=== PATIENT | female | born 1950 | race Two or more races ===

== ENCOUNTER 2023-01-31 23:06 | Emergency (ER) | payer MEDICARE, MEDICAID ==
[~2023-01-31] VITALS: Ht 167.6 cm; Wt 65.9 kg
[2023-01-31 23:12] VITALS: BP 135/76
[2023-01-31] MEDS ORDERED: DEXAMETHASONE SOD PHOS 4 MG/ML 5 ML VIAL IM ONE (23:45)
[2023-01-31] MEDS ORDERED: DiphenhydrAMINE HCL 25 MG CAPSULE PO ONE (23:45)
[2023-01-31] MEDS ORDERED: FAMOTIDINE 20 MG TABLET PO ONE (23:45)
== END 2023-02-01 00:04 | disposition home or self-care (01) ==
LOC: EMS 23:10
DX: T78.40XA Allergy, unspecified, initial encounter (principal); E11.9 Type 2 diabetes mellitus without complications; Z88.0 Allergy status to penicillin; Z88.1 Allergy status to other antibiotic agents; Z88.8 Allergy status to other drugs, medicaments and biological substances; X58.XXXA Exposure to other specified factors, initial encounter
CPT/HCPCS: 99283; 96372; J1100